=== PATIENT | female | born 1990 | race Caucasian/White ===

== ENCOUNTER → 2022-11-15 18:27 | Outpatient (BNVA) | payer MEDICAID, SELFPAY | PROVIDERS: Visit Provider Nurse Practitioner | DX: J02.9 Acute pharyngitis, unspecified (principal) | CPT/HCPCS: 87071; 87880 ==

== ENCOUNTER 2023-07-03 15:35 | Emergency (ER) | payer MEDICAID, SELFPAY ==
[2023-07-03 15:50] VITALS: BP 112/76; PULSE 88; RESP 18; TEMP 36.6; O2SAT 99; BMI 24.4
--- NOTE | 2023-07-03 16:21 | CTR_ITS ---
PROCEDURE INFORMATION: Exam: CT Abdomen And Pelvis With Contrast Exam date and time: 07/03/2023 5:03 PM Age: 33 years old Clinical indication: Abdominal pain; Localized; Right upper quadrant (ruq); Patient HX: Ruq pain; Additional info: Gen. Abd pain, diarrhea TECHNIQUE: Imaging protocol: Computed tomography of the abdomen and pelvis with contrast. Axial, coronal and sagittal reformatted images were created and reviewed. Radiation optimization: All CT scans at this facility use at least one of these dose optimization techniques: automated exposure control; mA and/or kV adjustment per patient size (includes targeted exams where dose is matched to clinical indication); or iterative reconstruction. Contrast material: OMNI 350; Contrast volume: 100 ml; Contrast route: INTRAVENOUS (IV); COMPARISON: No relevant prior studies available. RADIATION DOSE METRICS: Total DLP (mGy-cm): 465 FINDINGS: Liver: 3 mm low-density lesion in the right hepatic lobe, too small to characterize. Gallbladder and bile ducts: No radiodense gallstones. No biliary ductal dilatation. Pancreas: Unremarkable. Spleen: Unremarkable. Adrenal glands: Normal. No mass. Kidneys and ureters: Nonobstructing right renal calculus. No hydronephrosis. Stomach and bowel: Mildly distended, fluid-filled and fecalized loops of small bowel in the lower abdomen and pelvis. No bowel wall thickening. No obstruction. No pneumatosis. Appendix: Appendix not identified with certainty but no right lower quadrant inflammatory change to suggest acute appendicitis. Intraperitoneal space: No free fluid. No organized fluid collection. No free air. Vasculature: Unremarkable. No aneurysm. Lymph nodes: No pathologically enlarged lymph nodes. Urinary bladder: Unremarkable as visualized. Reproductive: Unremarkable. Bones/joints: No acute osseous abnormality. Soft tissues: Unremarkable. CT/CT abdomen pelvis w con* [id number] IMPRESSION: 1. Mildly distended, fluid-filled and fecalized loops of small bowel in the lower abdomen and pelvis. Mild nonspecific enteritis could produce this appearance. 2. Additional findings, as above.
--- NOTE | 2023-07-03 16:22 | W.ED.ABDPA2 ---
HPI - Abdominal Pain General: Chief Complaint: Abdominal Pain Stated Complaint: abd pain Time Seen by Provider: 07/03/23 16:17 History of Present Illness: Patient reports having a nausea vomiting diarrhea last Friday and Friday. Patient reports she felt better on Friday and Friday but starting last night she started feeling ill again with abdominal pain and diarrhea. Patient has had some nausea but no vomiting at this episode. Patient had no abdominal surgeries. Patient has had 3 children. Patient uses oral control. Patient denies any blood in the stool. Patient appears in moderate pain. Patient appears nontoxic. Associated Symptoms: Reports diarrhea Review of Systems General: Reports: 10 or more systems reviewed and unremarkable except in HPI and below GI: Reports: abdominal pain and diarrhea Physical Exam Const: COMMON NORMALS: alert Neck/C-Spine: COMMON NORMALS: full ROM Resp: COMMON NORMALS: normal respiratory effort GI: COMMON NORMALS: Soft to palpation PALPATION: Yes Soft to palpation and Yes Tenderness to palpation present (GI) Extremity: COMMON NORMALS: no pedal edema Neuro: SENSORIUM/ORIENTATION: Yes alert Skin: COMMON NORMALS: turgor normal GENERAL SKIN EXAM: turgor normal Course Vital Signs: Vital signs: Vital Signs Temperature 97.8 F 07/03/23 15:50 Pulse Rate 76 07/03/23 17:06 Respiratory Rate 15 07/03/23 16:52 Blood Pressure 107/68 07/03/23 17:06 Pulse Oximetry 98 07/03/23 17:06 Oxygen Delivery Me thod Room Air 07/03/23 15:50 MDM - Abdominal Pain Medical Decision Making Patient comes in today for complaints of abdominal pain and diarrhea starting last night. Patient had had similar symptoms last week. But she felt she was better until last night. On exam abdomen soft with some generalized tenderness. Patient appears in moderate to severe pain. Respirations are even lungs are clear to auscultation. Differential diagnosis includes not limited to constipation, gastroenteritis, diverticulitis, renal calculi, urinary tract infection. CBC was unremarkable. CMP did note some mild hypokalemia at 3.3. Urinalysis had a large amount of blood in it. CT noted noticed [place] abnormalities except for some fluid-filled small bowel suggestive of enteritis. Reviewed exam with patient recommended treatment for pain and nausea encourage fluids rest and follow-up with primary care. Patient was infused with IV fluids and given medications for pain and nausea today. Lab Data 07/03/23 16:50 07/03/23 16:50 Labs/Radiology: Radiology Impressions Abdomen/Pelvis CT 07/03/23 16:21 IMPRESSION: 1. Mildly distended, fluid-filled and fecalized loops of small bowel in the lower abdomen and pelvis. Mild nonspecific enteritis could produce this appearance. 2. Additional findings, as above. Laboratory Results WBC 9.55 10^3/uL (3.29-11.43) 07/03/23 16:50 RBC 5.17 10^6/uL (3.85-5.65) 07/03/23 16:50 Hgb 15.20 g/dL (11.27-16.99) 07/03/23 16:50 Hct 44.7 % (36-47) 07/03/23 16:50 MCV 86.5 fl (85-98) 07/03/23 16:50 MCH 29.4 pg (27-33) 07/03/23 16:50 MCHC 34.0 g/dL (30-55) 07/03/23 16:50 RDW 12.5 % (12.1-15.1) 07/03/23 16:50 Plt Count 208 10^3/cmm (157-399) 07/03/23 16:50 MPV 11.9 fL (7.4-10.4) H 07/03/23 16:50 Neut % (Auto) 70.7 % 07/03/23 16:50 Lymph % (Auto) 17.8 % 07/03/23 16:50 [place] % (Auto) 8.8 % 07/03/23 16:50 Eos % (Auto) 2.2 % 07/03/23 16:50 Baso % (Auto) 0.3 % 07/03/23 16:50 Neut # (Auto) 6.75 10^3/uL (1.8-7.7) 07/03/23 16:50 Lymph # (Auto) 1.7 10^3/uL (0.8-4.8) 07/03/23 16:50 [place] # (Auto) 0.8 10^3/uL (0.2-0.9) 07/03/23 16:50 Eos # (Auto) 0.2 10^3/uL (0.0-0.8) 07/03/23 16:50 Baso # (Auto) 0.0 10^3/uL (0.0-0.1) 07/03/23 16:50 Nucleated RBC % (auto) 0 % 07/03/23 16:50 Nucleated RBCs # 0.0 /100WBC 07/03/23 16:50 Sodium 140 mmol/L (136-145) 07/03/23 16:50 Potassium 3.3 mmol/L (3.5-5.1) L 07/03/23 16:50 Chloride 106 mmol/L (98-107) 07/03/23 16:50 Carbon Dioxide 22 mmol/L (22-29) 07/03/23 16:50 Anion Gap 15.3 (5-19) 07/03/23 16:50 BUN 10 mg/dL (6-20) 07/03/23 16:50 Creatinine 0.7 mg/dL (0.5-0.9) 07/03/23 16:50 GFR Calculation 95.2 mL/min (90-130) 07/03/23 16:50 Glucose 102 mg/dL (65-115) 07/03/23 16:50 Calculated Osmolality 289 mOsm/kg (285-295) 07/03/23 16:50 Calcium 8.3 mg/dL (8.5-10.5) L 07/03/23 16:50 Total Bilirubin 0.4 mg/dL (0.15-1.2) 07/03/23 16:50 AST 16 U/L (0-32) 07/03/23 16:50 ALT 22 U/L (0-33) 07/03/23 16:50 Alkaline Phosphatase 56 U/L (35-105) 07/03/23 16:50 Total Protein 7.6 g/dL (6.6-8.7) 07/03/23 16:50 Albumin 4.3 g/dL (3.5-5.2) 07/03/23 16:50 Globulin 3.3 g/dL (1.3-4.6) 07/03/23 16:50 Lipase 36 U/L (13-60) 07/03/23 16:50 HCG, Qual Negative (Negative) 07/03/23 16:50 Urine Color Yellow (Yellow) 07/03/23 16:50 Urine Appearance Cloudy (CLEAR) A 07/03/23 16:50 Urine pH 6 (5-7) 07/03/23 16:50 Ur Specific [place] 1.030 (1.005-1.030) 07/03/23 16:50 Urine Protein 1+ (Negative) H 07/03/23 16:50 Urine Glucose (UA) Norm (Normal) 07/03/23 16:50 Urine Ketones Negative (Negative) 07/03/23 16:50 Urine Blood 3+ (Negative) H 07/03/23 16:50 Urine Nitrate Negative (Negative) 07/03/23 16:50 Urine Bilirubin Neg (Negative) 07/03/23 16:50 Urine Urobilinogen Norm mg/dL (Negative) 07/03/23 16:50 Ur Leukocyte Esterase Negative (Negative) 07/03/23 16:50 Urine RBC >100 /hpf (0-2) H 07/03/23 16:50 Urine WBC None /hpf (0-5) 07/03/23 16:50 Ur Squamous Epith Cells 5-10 /hpf (0-5) H 07/03/23 16:50 Calcium Oxalate Crystal 0-4 /hpf H 07/03/23 16:50 Amorphous Sediment Not Reportable 07/03/23 16:50 Urine Bacteria Trace /hpf (NONE) 07/03/23 16:50 Urine Mucus 3+ /hpf 07/03/23 16:50 All radiology interpretation(s) finalized by discharge Discharge Plan Discharge Patient Disposition: Home Clinical Impression: Enteritis Condition: Stable Prescriptions: New hydrocodone-acetaminophen 5-325 mg tablet 1 tab PO Q8H PRN (Reason: pain) Qty: 7 0RF ondansetron 4 mg tablet,disintegrating 4 mg PO Q8H PRN (Reason: nausea and vomiting) Qty: 7 0RF No Action clarithromycin 500 mg tablet 500 mg PO BID 10 Days Qty: 20 0RF fluticasone propionate [Flonase Allergy Relief] 50 mcg/actuation spray,suspension 2 spray intranasal DAILY Qty: 16 0RF Rx Instructions: administer into each nostril cetirizine [Zyrtec] 10 mg tablet 10 mg PO DAILY Qty: 30 0RF norethindrone ac-eth estradiol [Loestrin 1.5/30 (21)] 1.5-30 mg-mcg tablet 1 tab PO DAILY Discharge Orders: Discharge ED (Routine); Ordered 07/03/23 Ordered By: Jayce Booker Referrals: Raiza Grider APN [Primary Care Provider] - Discharge Diet: Usual diet Discharge Activity: Increase activity as tolerated Patient Instructions: Enteritis (ED) Activity Restrictions/Additional Instructions: Drink plenty of fluids. Make sure to include fluids with electrolytes especially while persistent diarrhea. Follow-up with primary care. Return to ED for worsening symptoms such as bright red blood in the stool, fever greater than 100.4, or new concerns. Coding Level of Care Code ED [employer] for Arsh Sanchez
[2023-07-03 16:52] VITALS: RESP 15; O2SAT 100
[2023-07-03] MEDS: morphine 4 mg/mL SDV 1 mL IVP ×2 (16:52→18:03)
[2023-07-03] MEDS: ondansetron 2 mg/ML SDV 2 mL 4 MG IVP (16:52)
[2023-07-03] MEDS: sodium chloride 0.9% 1,000 ML 999 ML IV (16:53)
[2023-07-03 17:00] LABS: Basophils % 0.3 %; Eosinophils # 0.2 10^3/uL (0.0-0.8); Eosinophils % 2.2 %; Hematocrit 44.7 % (36-47); Lymphocytes # 1.7 10^3/uL (0.8-4.8); Lymphocytes % 17.8 %; Mean Corpuscular Hemoglobin 29.4 pg (27-33); Mean Corpuscular Volume 86.5 fl (85-98); Mean Platelet Volume 11.9 fL (7.4-10.4); Monocytes # 0.8 10^3/uL (0.2-0.9); Monocytes % 8.8 %; Neutrophils # 6.75 10^3/uL (1.8-7.7); Neutrophils % 70.7 %; Nucleated Red Blood Cells % 0 %; Platelet Count 208 10^3/cmm (157-399); Red Blood Count 5.17 10^6/uL (3.85-5.65); Red Cell Distribution Width 12.5 % (12.1-15.1); White Blood Count 9.55 10^3/uL (3.29-11.43)
[2023-07-03] MEDS: iohexol 350 mg/mL 500 mL Btl (per mL) IV (17:05)
[2023-07-03 17:06] VITALS: BP 107/68; PULSE 76; O2SAT 98
[2023-07-03 17:08] LABS: HCG, Serum Qual Negative (Negative)
[2023-07-03 17:12] LABS: Add Urine Microscopic? YES; Bilirubin Urine Neg (Negative); Blood Urine 3+ (Negative); Glucose Urine UA Norm (Normal); Ketones Urine Negative (Negative); Leukocyte Esterase Urine Negative (Negative); Nitrate Urine Negative (Negative); Protein Urine 1+ (Negative); Urine Appearance Cloudy (CLEAR); Urine Color Yellow (Yellow); Urobilinogen Urine Norm (Negative); pH Urine 6 (5-7)
[2023-07-03 17:15] LABS: Alanine Aminotransferase 22 U/L (0-33); Albumin Level 4.3 g/dL (3.5-5.2); Alkaline Phosphatase 56 U/L (35-105); Anion Gap 15.3 (5-19); Aspartate Amino Transferase 16 U/L (0-32); Blood Urea Nitrogen 10 mg/dL (6-20); Calcium 8.3 mg/dL (8.5-10.5); Carbon Dioxide 22 mmol/L (22-29); Chloride 106 mmol/L (98-107); Creatinine Clr Calc Pharmacy 97.1922; Globulin 3.3 g/dL (1.3-4.6); Glomerular Filtration Rate 95.2 mL/min (90-130); Glucose 102 mg/dL (65-115); Lipase 36 U/L (13-60); Osmolality Calculated 289 mOsm/kg (285-295); Potassium 3.3 mmol/L (3.5-5.1); Sodium 140 mmol/L (136-145); Total Bilirubin 0.4 mg/dL (0.15-1.2); Total Protein 7.6 g/dL (6.6-8.7)
[2023-07-03 17:23] LABS: Add Urine Culture? Yes; Bacteria Urine TRACE /hpf; Calcium Oxalate Crystals Urine 0-4 /hpf; Mucus Urine 3+ /hpf; RBC Urine >100 /hpf (0-2)
[2023-07-03 18:03] VITALS: RESP 16; O2SAT 100
[2023-07-03 18:29] VITALS: BP 107/76; PULSE 84; O2SAT 100
== END 2023-07-03 18:31 | disposition home or self-care (01) ==
PROVIDERS: Emergency Medicine; Emergency Provider Nurse Practitioner Family; PCP Nurse Practitioner Family
DX: K52.9 Noninfective gastroenteritis and colitis, unspecified (principal)
CPT/HCPCS: 74177; 80053; 81001; 83690; 84703; 85025; 87086; 96374; 96375; 96376; 99285; J2270; J2405; J7030; Q9967

== ENCOUNTER 2024-07-21 09:45 | Oncology outpatient (recurring) (ONCR) | payer MEDICAID, SELFPAY ==
[2024-07-21] MEDS: rho(d) immune globulin 1,500 unit Syringe 1500 UNIT IM (10:19)
[2024-07-21 10:22] VITALS: BP 116/74; PULSE 108; RESP 16; O2SAT 98
== END 2024-07-24 23:59 | disposition home or self-care (01) ==
LOC: ONCMED 09:46
PROVIDERS: PCP Family Medicine; Visit Provider Family Medicine
DX: O26.899 Other specified pregnancy related conditions, unspecified trimester (principal); Z79.899 Other long term (current) drug therapy; Z67.41 Type O blood, Rh negative
CPT/HCPCS: 96372; J2790

== ENCOUNTER 2024-08-24 11:26 | Outpatient (CLI) | payer MEDICAID, SELFPAY ==
[2024-08-24 11:31] VITALS: BMI 32.3
[2024-08-24 11:41] VITALS: BP 122/72; PULSE 100
[2024-08-24 11:56] VITALS: BP 119/64; PULSE 100
[2024-08-24 12:12] VITALS: BP 119/64; PULSE 100; O2SAT 98
== END 2024-08-24 12:14 | disposition home or self-care (01) ==
LOC: OPOB 11:27 → OBGYN 11:27
PROVIDERS: PCP Family Medicine; Visit Provider Family Medicine
DX: O09.529 Supervision of elderly multigravida, unspecified trimester (principal); Z3A.00 Weeks of gestation of pregnancy not specified
CPT/HCPCS: 59025

== ENCOUNTER 2024-08-27 10:36 | Outpatient (CLI) | payer MEDICAID, SELFPAY ==
[2024-08-27 10:40] VITALS: BMI 33.3
[2024-08-27 10:42] VITALS: BP 117/71; PULSE 91
[2024-08-27 11:02] VITALS: BP 107/65; PULSE 96
[2024-08-27 11:16] VITALS: BP 107/65; PULSE 96; RESP 16; TEMP 35.6; O2SAT 99
== END 2024-08-27 11:16 | disposition home or self-care (01) ==
LOC: OPOB 10:38 → OBGYN 10:39
PROVIDERS: PCP Family Medicine; Visit Provider Family Medicine
DX: O09.519 Supervision of elderly primigravida, unspecified trimester (principal); Z3A.00 Weeks of gestation of pregnancy not specified
CPT/HCPCS: 59025; 99211

== ENCOUNTER 2024-08-31 11:45 | Outpatient (CLI) | payer MEDICAID, SELFPAY ==
[2024-08-31 11:53] VITALS: BP 120/76; PULSE 80
[2024-08-31 11:56] VITALS: BMI 33.3
[2024-08-31 12:08] VITALS: BP 118/78; PULSE 100
[2024-08-31 12:15] VITALS: BP 118/78; PULSE 100; RESP 15
== END 2024-08-31 12:15 | disposition home or self-care (01) ==
LOC: OPOB 11:48 → OBGYN 11:49
PROVIDERS: PCP Family Medicine; Visit Provider Family Medicine
DX: O09.519 Supervision of elderly primigravida, unspecified trimester (principal); Z3A.00 Weeks of gestation of pregnancy not specified
CPT/HCPCS: 59025

== ENCOUNTER 2024-09-01 08:45 | Outpatient (CLI) | payer MEDICAID, SELFPAY ==
[2024-09-01] VITALS (13 sets, daily range): BP systolic 98–127; BP diastolic 55–81; PULSE 99–114; RESP 18; BMI 33.1
[2024-09-01 09:20] LABS: Glucose Urine UA Negative (Normal); Nitrate Urine Negative (Negative); Specific Gravity, Urine 1.019 (1.005-1.030)
[2024-09-01] MEDS: ondansetron hcl ODT 4 mg Tab PO (09:52)
== END 2024-09-01 11:55 | disposition home or self-care (01) ==
LOC: OPOB 08:50 → OBGYN 08:50
PROVIDERS: PCP Family Medicine; Visit Provider Family Medicine
DX: O26.899 Other specified pregnancy related conditions, unspecified trimester (principal); Z3A.00 Weeks of gestation of pregnancy not specified; M54.9 Dorsalgia, unspecified; R25.2 Cramp and spasm
CPT/HCPCS: 59025; 81001; 99211; J9999; Q0162

== ENCOUNTER 2024-09-06 16:42 | Outpatient (CLI) | payer MEDICAID, SELFPAY ==
[2024-09-06] VITALS (7 sets, daily range): BP systolic 99–122; BP diastolic 54–77; PULSE 76–90; RESP 16; BMI 34.3
== END 2024-09-06 19:12 | disposition home or self-care (01) ==
LOC: OPOB 16:44 → OBGYN 16:45
PROVIDERS: PCP Family Medicine; Visit Provider Family Medicine
DX: O09.519 Supervision of elderly primigravida, unspecified trimester (principal); Z3A.00 Weeks of gestation of pregnancy not specified
CPT/HCPCS: 59025; 99211

== ENCOUNTER 2024-09-09 10:46 | Outpatient (CLI) | payer MEDICAID, SELFPAY ==
[2024-09-09 10:45] VITALS: BMI 33.3
[2024-09-09 10:52] VITALS: BP 128/78; PULSE 85
[2024-09-09 11:01] VITALS: BP 117/73; PULSE 96
[2024-09-09 11:21] VITALS: BP 123/76; PULSE 97
== END 2024-09-09 11:22 | disposition home or self-care (01) ==
LOC: OPOB 10:47 → OBGYN 10:48
PROVIDERS: Absent Provider Family Medicine; PCP Family Medicine; Visit Provider Family Medicine
DX: O09.519 Supervision of elderly primigravida, unspecified trimester (principal); Z3A.00 Weeks of gestation of pregnancy not specified
CPT/HCPCS: 59025

== ENCOUNTER 2024-09-14 10:55 | Outpatient (CLI) | payer MEDICAID, SELFPAY ==
[2024-09-14 11:00] VITALS: BMI 33.3
[2024-09-14 11:08] VITALS: BP 119/76; PULSE 110
[2024-09-14 11:28] VITALS: BP 125/76; PULSE 94
== END 2024-09-14 11:32 | disposition home or self-care (01) ==
LOC: OPOB 10:57 → OBGYN 10:58
PROVIDERS: PCP Family Medicine; Visit Provider Family Medicine
DX: O09.519 Supervision of elderly primigravida, unspecified trimester (principal); Z3A.00 Weeks of gestation of pregnancy not specified
CPT/HCPCS: 59025; 99211

== ENCOUNTER 2024-09-17 12:11 | Outpatient (CLI) | payer MEDICAID, SELFPAY ==
[2024-09-17 12:17] VITALS: RESP 14; BMI 33.5
[2024-09-17 12:19] VITALS: BP 118/77; PULSE 89
[2024-09-17 12:39] VITALS: BP 115/72; PULSE 92
[2024-09-17 13:02] VITALS: BP 115/72; PULSE 92; RESP 16; TEMP 36.9; O2SAT 98
== END 2024-09-17 12:59 | disposition home or self-care (01) ==
LOC: OPOB 12:11 → OBGYN 12:13
PROVIDERS: PCP Family Medicine; Visit Provider Family Medicine
DX: O09.519 Supervision of elderly primigravida, unspecified trimester (principal); Z3A.00 Weeks of gestation of pregnancy not specified
CPT/HCPCS: 59025

== ENCOUNTER 2024-09-18 19:47 | Outpatient (CLI) | payer MEDICAID, SELFPAY ==
[2024-09-18] VITALS (10 sets, daily range): BP systolic 106–120; BP diastolic 69–83; PULSE 86–105; RESP 16; TEMP 36.6; O2SAT 98; BMI 34.0
== END 2024-09-18 22:16 | disposition home or self-care (01) ==
LOC: OPOB 19:51 → OBGYN 19:51
PROVIDERS: PCP Family Medicine; Visit Provider Family Medicine
DX: O36.8190 Decreased fetal movements, unspecified trimester, not applicable or unspecified (principal); Z3A.00 Weeks of gestation of pregnancy not specified; R10.9 Unspecified abdominal pain
CPT/HCPCS: 59025; 99211

== ENCOUNTER 2024-09-21 10:40 | Outpatient (CLI) | payer MEDICAID, SELFPAY ==
[2024-09-21 10:50] VITALS: BP 108/73; PULSE 90
== END 2024-09-21 11:30 | disposition home or self-care (01) ==
LOC: OPOB 10:42 → OBGYN 10:43
PROVIDERS: PCP Family Medicine; Visit Provider Family Medicine
DX: O09.519 Supervision of elderly primigravida, unspecified trimester (principal); Z3A.00 Weeks of gestation of pregnancy not specified
CPT/HCPCS: 59025

== ENCOUNTER 2024-09-24 09:00 | Outpatient (CLI) | payer MEDICAID, SELFPAY ==
[2024-09-24 09:03] VITALS: BMI 33.3
[2024-09-24 09:06] VITALS: BP 130/74; PULSE 100
[2024-09-24 09:22] VITALS: BP 111/70; PULSE 102
[2024-09-24 09:44] VITALS: BP 111/70; PULSE 102; RESP 17
== END 2024-09-24 09:44 | disposition home or self-care (01) ==
LOC: OPOB 09:00 → OBGYN 09:01
PROVIDERS: PCP Family Medicine; Visit Provider Family Medicine
DX: O09.519 Supervision of elderly primigravida, unspecified trimester (principal); Z3A.00 Weeks of gestation of pregnancy not specified
CPT/HCPCS: 59025